=== PATIENT | female | born 1940 | race Caucasian/White ===

== ENCOUNTER → 2024-11-21 10:05 | Outpatient (REF) | payer OTHER, SELFPAY | LOC: HWRAD 10:05 | PROVIDERS: ATTENDING PHYSICIAN Podiatrist Foot & Ankle Surgery; FAMILY PHYSICIAN Internal Medicine | DX: M19.072 Primary osteoarthritis, left ankle and foot (principal); M25.572 Pain in left ankle and joints of left foot; M10.072 Idiopathic gout, left ankle and foot | CPT/HCPCS: 73610 ==